=== PATIENT | male | born 1970 | race African-American/Black ===

== ENCOUNTER 2019-01-11 02:14 | Emergency (ER) | payer SELFPAY ==
[2019-01-11] MEDS ORDERED: SULFAMETHOXAZOLE/TRIMETHOPRIM 800-160 MG TABLET PO ONE (04:39)
[2019-01-11] MEDS ORDERED: OXYCODONE-ACETAMINOPHEN 5-325 MG TABLET PO ONE (04:39)
[2019-01-11] MEDS ORDERED: PROMETHAZINE HCL 25 MG TABLET PO ONE (04:39)
[2019-01-11] MEDS ORDERED: CEPHALEXIN 500 MG CAPSULE PO ONE (04:39)
--- NOTE | 2019-01-11 05:00 | ER Document Report ---
HPI - HPI Time Seen by Provider: 01/11/19 04:24 Pain Level: 4 Context: Patient is a 48-year-old male that comes to the emergency department with 2 complaints. Chief complaint is pain in his right upper jaw over the past 2 days, he has a known broken tooth in this area, he reports swelling and pain. He denies sore throat, fever/chills, neck pain. Second complaint is skin infection over the scrotum. He states on the right side he had an area that swelled up, burst, and drained, now he has what seems to be a starting one on the left. He denies history of diabetes, history of abscesses. He takes no daily medications. Past Medical History - General Information source: Patient - Social History Smoking Status: Unknown if Ever Smoked Drug Abuse: None Lives with: Family Family History: Reviewed & Not Pertinent - Medical History Medical History: Negative - Immunizations Immunizations up to date: Yes Hx Diphtheria, Pertussis, Tetanus Vaccination: Yes Vertical Provider Document - CONSTITUTIONAL General Appearance: WD/WN, No Apparent Distress - INFECTION CONTROL TRAVEL OUTSIDE OF THE [place] IN LAST 30 DAYS: No - HEENT HEENT: Atraumatic, Normocephalic, PERRLA. negative: Conjuctival Injection, Pharyngeal Exudate, Pharyngeal Tenderness, Pharyngeal Erythema, Tympanic Membrane Red, Tympanic Membrane Bulging Mouth Diagram: 1 - Fractured tooth 2 - Dental caries with surrounding erythema but no noted abscess. Normal oral pharyngeal exam otherwise. - NECK Neck: Normal Inspection. negative: Lymphadenopathy-Left, Lymphadenopathy-Right - RESPIRATORY Respiratory: Breath Sounds Normal, No Respiratory Distress - CARDIOVASCULAR Cardiovascular: Regular Rate, Regular Rhythm - GI/ABDOMEN Gastrointestinal: Abdomen Soft, Abdomen Non-Tender. negative: Abdomen Tender - REPRODUCTIVE Male Genitalia: negative: Normal Inspection - Resolving abscess over the right upper scrotum, over the left upper scrotum there is a erythematous, tender, minimally indurated area with no fluctuance. Remaining skin exam is unremarkable. Normal scrotal, testicular, and genital exam otherwise. Exam performed with Valentina EARLY at bedside. - MUSCULOSKELETAL/EXTREMETIES Musculoskeletal/Extremeties: MAEW, FROM, Non-Tender - NEURO Level of Consciousness: Awake, Alert, Appropriate Motor/Sensory: No Motor Deficit, No Sensory Deficit - DERM Integumentary: Warm, Dry, No Rash Course - Re-evaluation Re-evalutation: Physical examination is consistent with a dental infection but no oral abscesses noted. No evidence of Eduardo's angina. Patient will be treated for this, referred to dentist. Patient has an infection over the skin of the scrotum on the left side, exam performed with Valentina EARLY at bedside, bedside ultrasound performed that shows no fluid pocket, there is no evidence of fluctuance. As result the area was not drained. Patient will be treated instead for the infection with antibiotics, discussed care, follow-up, and return precautions. Patient states understanding and agreement. - Vital Signs Vital signs: Temp Pulse Resp BP Pulse Ox 98.6 F 102 H 18 145/67 H 96 01/11/19 02:19 01/11/19 02:19 01/11/19 02:19 01/11/19 02:19 01/11/19 02:19 Discharge - Discharge Clinical Impression: Pain, dental, Skin infection Condition: Stable Disposition: HOME, SELF-CARE Additional Instructions: Take both the amoxicillin and Bactrim antibiotics for the dental and skin infection. No drainable abscess is seen at this time over the left side of the scrotum. I recommend a warm compress to the scrotum, keep area clean. Follow- up with primary care, follow-up with the dentist referral for additional management of your teeth. Return if you worsen including developing redness or swelling of the scrotum, fever/chills, swelling of the face, or any other concerning symptoms. [facility] [address] [facility], [id number] Prescriptions: Amoxicillin Trihydrate [Amoxil 500 mg Capsule] 500 mg PO BID 10 Days #20 capsule Sulfamethoxazole/Trimethoprim [Bactrim Ds Tablet] 1 each PO BID #14 tablet
[2019-01-11 06:06] VITALS: BP 125/74
== END 2019-01-11 06:21 | disposition home or self-care (01) ==
LOC: ER 02:14
DX: K02.9 Dental caries, unspecified (principal); N49.2 Inflammatory disorders of scrotum
CPT/HCPCS: 99282